=== PATIENT | female | born 1940 | race Caucasian/White ===

== ENCOUNTER 2023-08-31 22:45 | Emergency (ER) | payer OTHER, MEDICARE ==
[2023-08-31 23:30] VITALS: BP 137/86; PULSE 86; RESP 17; TEMP 98.7
--- NOTE | 2023-09-01 00:55 | ED ---
General Adult HPI - General Source: patient Mode of arrival: ambulatory Limitations: no limitations <Payam Nguyễn - Last Filed: 09/01/23 00:58> <Manuela Eagle - Last Filed: 09/01/23 06:51> - General Chief complaint: Recheck/Abnormal Lab/Rx Stated complaint: For surgery - Transfer Time Seen by Provider: 08/31/23 23:27 - History of Present Illness Initial comments: 82-year-old female presents to the ED with a chief complaint of rectal prolapse. Patient was seen at [facility]. Patient reported today was having a bowel movement when she felt a "lump" popped out. Was evaluated and found to have a rectal prolapse. Review of notes there shows that patient had manual reduction attempted however this was unsuccessful. Patient was then transferred to this facility for possible surgical evaluation. At this time, patient notes of some abdominal cramping. Has no other complaints. No chest pain or shortness of breath. (Payam Nguyễn) - Related Data Previous Rx's Medication Instructions Recorded polyethylene glycoL 3350 [Miralax] 17 gm PO DAILY #527 gm 09/01/23 Allergies Allergy/AdvReac Type Severity Reaction Status Date / Time codeine Allergy Unknown Verified 08/31/23 23:16 Review of Systems ROS Other: All systems not noted in ROS Statement are negative. <Payam Nguyễn - Last Filed: 09/01/23 00:58> ROS Other: All systems not noted in ROS Statement are negative. <Manuela Eagle P - Last Filed: 09/01/23 06:51> ROS Statement: Those systems with pertinent positive or pertinent negative responses have been documented in the HPI. Past Medical History Past Medical History: GERD/Reflux, Hypertension, Thyroid Disorder Additional Past Medical History / Comment(s): anxiety disorder. Rhinitis. Vitamin D Deficiency. cervical degenerative disc dx. Bradycardia. hyperlipidemia. Anemia. Diverticulitis. Spinal Stenosis. Sciatica History of Any Multi-Drug Resistant Organisms: None Reported Past Surgical History: Cholecystectomy, Hysterectomy Additional Past Surgical History / Comment(s): Back Surgery Past Psychological History: Anxiety Smoking Status: Never smoker Past Alcohol Use History: Occasional Past Drug Use History: None Reported <Payam Nguyễn - Last Filed: 09/01/23 00:58> General Exam Limitations: no limitations General appearance: alert, in no apparent distress Eye exam: Present: normal appearance Neck exam: Present: normal inspection Respiratory exam: Present: normal lung sounds bilaterally Cardiovascular Exam: Present: regular rate, normal rhythm GI/Abdominal exam: Present: soft (Diffuse abdominal tenderness to palpation. No rebound guarding or rigidity.) Rectal exam: Present: other (Exam chaperoned by Marry HALL. There is no rectal prolapse at this time. There is a small external hemorrhoid.) Neurological exam: Present: alert, oriented X3 Skin exam: Present: warm, dry <Payam Nguyễn - Last Filed: 09/01/23 00:58> Course Vital Signs 08/31/23 23:09 Temperature 98.7 F Pulse Rate 86 Respiratory 17 Rate Blood Pressure 137/86 O2 Sat by Pulse 95 Oximetry Medical Decision Making <Payam Nguyễn - Last Filed: 09/01/23 00:58> <Manuela Eagle - Last Filed: 09/01/23 06:51> - Medical Decision Making Was pt. sent in by a medical professional or institution (, PA, GRAPHIC DESIGN ASSISTANT, urgent care, hospital, or prison...) When possible be specific @ -[facility] Did you speak to anyone other than the patient for history (EMS, parent, family, police, friend...)? What history was obtained from this source @ -No Did you review nursing and triage notes (agree or disagree)? Why? @ -I reviewed and agree with nursing and triage notes Were old charts reviewed (outside hosp., previous admission, EMS record, old EKG, old radiological studies, urgent care reports/EKG's, prison records)? Report findings @ -Yes, reviewed paperwork from [facility] Differential Diagnosis (chest pain, altered mental status, abdominal pain women, abdominal pain men, vaginal bleeding, weakness, fever, dyspnea, syncope, headache, dizziness, GI bleed, back pain, seizure, CVA, palpatations, mental health, musculoskeletal)? @ -Differential Abdominal Pain Women: Appendicitis, Cholecystitis, diverticulosis, ischemic bowel, pancreatitis, hepatitis, UTI, gastroenteritis, AAA, incarcerated hernia, bowel obstruction, constipation, inflammatory bowel, hepatitis, peptic ulcer disease, splenic infarction, perforated viscus, vulvitis, ovarian torsion, PID, kidney stone, placenta abruption, this is not meant to be an all-inclusive list EKG interpreted by me (3pts min.). @ -None X-rays interpreted by me (1pt min.). @ -None done CT interpreted by me (1pt min.). @ -None done U/S interpreted by me (1pt. min.). @ -None done What testing was considered but not performed or refused? (CT, X-rays, U/S, labs)? Why? @ -None What meds were considered but not given or refused? Why? @ -None Did you discuss the management of the patient with other professionals (professionals i.e. Dr., PA, GRAPHIC DESIGN ASSISTANT, lab, RT, psych nurse, social insurance adviser, superintendent division, teacher, inspectors and regulatory officers, hospice case manager)? Give summary @ -No Was smoking cessation discussed for >3mins.? @ -No Was critical care preformed (if so, how long)? @ -No Were there social determinants of health that impacted care today? How? (Homelessness, low income, unemployed, alcoholism, drug addiction, transportation, low edu. Level, literacy, decrease access to med. care, prison, rehab)? @ -No Was there de-escalation of care discussed even if they declined (Discuss DNR or withdrawal of care, Hospice)? DNR status @ -No What co-morbidities impacted this encounter? (DM, HTN, Smoking, COPD, CAD, Cancer, CVA, ARF, Chemo, Hep., AIDS, mental health diagnosis, sleep apnea, morbid obesity)? @ -None Was patient admitted / discharged? Hospital course, mention meds given and route, prescriptions, significant lab abnormalities, going to OR and other pertinent info. @ -Discharge 82-year-old female transferred from [facility] due to acute nonreducible rectal prolapse. On examination this appears reduced. Patient instructed on how to perform reduction at home. Provided stool softener. Provided referral to see general surgery. Discharged home in stable condition. Discussed return precautions with patient and family who verbalized agreement. Patient was also given names of colorectal surgeons available in the [facility] area. Undiagnosed new problem with uncertain prognosis? @ -No Drug Therapy requiring intensive monitoring for toxicity (Heparin, Nitro, Insulin, Cardizem)? @ -No Were any procedures done? @ -No Diagnosis/symptom? @ -Rectal prolapse, now resolved Acute, or Chronic, or Acute on Chronic? @ -Acute Uncomplicated (without systemic symptoms) or Complicated (systemic symptoms)? @ -Uncomplicated Side effects of treatment? @ -No Exacerbation, Progression, or Severe Exacerbation? @ -No Poses a threat to life or bodily function? How? (Chest pain, [place], [place], pneumonia, PE, COPD, DKA, ARF, appy, cholecystitis, CVA, Diverticulitis, Homicidal, Suicidal, threat to staff... and all critical care pts) @ -No (Payam Nguyễn) I personally saw and evaluated this patient, patient reported that her rectal prolapse had completely resolved by the time I evaluated her. Patient was somewhat upset that she was transferred here because she was under the impression she would have the surgically repaired tonight. I advised the patient that there is no indication for emergent surgery since her prolapse has resolved. I recommended supportive care and outpatient follow-up with a general surgeon or colorectal surgeon. Patient was provided with contact information for a group of colorectal surgeons in [place]. All questions pertaining care were answered to the best of my ability return parameters were discussed and the patient was discharged home in stable condition. (Manuela Eagle) Disposition Is patient prescribed a controlled substance at d/c from ED?: No Time of Disposition: 00:30 <Payam Nguyễn - Last Filed: 09/01/23 00:58> Is patient prescribed a controlled substance at d/c from ED?: No <Manuela Eagle - Last Filed: 09/01/23 06:51> Clinical Impression: Rectal prolapse Disposition: HOME SELF-CARE Condition: Good Instructions (If sedation given, give patient instructions): Rectal Prolapse (ED) Additional Instructions: Please return to the Emergency Department if symptoms worsen or any other concerns. Please follow-up with general surgery or colorectal surgery. Prescriptions: polyethylene glycoL 3350 [Miralax] 17 gm PO DAILY #527 gm Referrals: Nonstaff,Physician [Primary Care Provider] - 1-2 days Carmelo Meza MD [Medical Doctor] - 1-2 days
[2023-09-01] MEDS: SENNOSIDES 8.6 MG TAB PO STA (01:10)
== END 2023-09-01 01:11 | disposition home or self-care (01) ==
LOC: EC 22:45
DX: K62.3 Rectal prolapse (principal); I10 Essential (primary) hypertension; Z88.5 Allergy status to narcotic agent; Z86.59 Personal history of other mental and behavioral disorders; Z90.49 Acquired absence of other specified parts of digestive tract
CPT/HCPCS: 99283